=== PATIENT | male | born 1945 | race Asian ===

== ENCOUNTER 2019-04-24 11:11 | Day surgery (SDC) | payer OTHER ==
[2019-04-24 11:50] VITALS: BMI 29.5
[2019-04-24 13:30] VITALS: TEMP 97.5
[2019-04-24 14:19] VITALS: BP 127/77; PULSE 69
--- NOTE | 2019-04-25 19:13 | PATH ---
Surgical Pathology Report Patient Name: [facility]. Rec. #: [id number] /Age/Gender: 1945 (Age: 73) / M Account: [id number] Location: [facility]SU-ENDOSCOPY Taken: 04/24/2019 Received: 04/24/2019 Reported: 04/25/2019 Physicians: Joseph Morton D.O. Specimen(s) Received A: POLYP DESCENDING B: POLYP SPLENIC FLEXURE C: POLYPS DISTAL TRANSVERSE D: POLYS DISTAL DESCENDING E: POLYP RECTUM Clinical History Polyp surveillance, fatty liver Final Diagnosis A. DESCENDING COLON, POLYP, BIOPSY: TUBULAR ADENOMA. B. COLON, SPLENIC FLEXURE, POLYP, BIOPSY: HYPERPLASTIC POLYP. C. DISTAL TRANSVERSE COLON, POLYP, BIOPSY: TUBULAR ADENOMA. D. DISTAL DESCENDING COLON, POLYP, BIOPSY: TUBULAR ADENOMA. E. RECTUM, POLYP, BIOPSY: TUBULAR ADENOMA. Electronically Signed Antonina Diaz M.D. Gross Description A. Received in formalin, labeled "polyp descending" is a harrell, irregular portion of soft tissue measuring 0.3 cm. in greatest dimension. The specimen is submitted in toto in one cassette. B. Received in formalin, labeled "polyp splenic flexure" are 2 harrell, irregular portions of soft tissue measuring 0.1 and 0.4 cm. in greatest dimension. The specimens are submitted in toto in one cassette. C. Received in formalin, labeled "polyp distal transverse" are 2 harrell, irregular portions of soft tissue measuring 0.3 cm. in greatest dimension. The specimens are submitted in toto in one cassette. D. Received in formalin, labeled "polyp distal descending" is a harrell, irregular portion of soft tissue measuring 0.2 cm. in greatest dimension. The specimen is submitted in toto in one cassette. E. Received in formalin, labeled "polyp rectum" is a harrell, irregular portion of soft tissue measuring 0.3 cm. in greatest dimension. The specimen is submitted in toto in one cassette. MLSZ/04/24/2019 sanml/04/24/2019
== END 2019-04-24 14:19 | disposition home or self-care (01) ==
LOC: JASU-ENDO 11:11
PROVIDERS: ATTEND Internal Medicine Gastroenterology
PROC: 0DBP8ZX Excision of Rectum, Via Natural or Artificial Opening Endoscopic, Diagnostic (ICD-10-PCS; 2019-04-24)
PROC: 0DBL8ZX Excision of Transverse Colon, Via Natural or Artificial Opening Endoscopic, Diagnostic (ICD-10-PCS; 2019-04-24)
PROC: 0DBM8ZX Excision of Descending Colon, Via Natural or Artificial Opening Endoscopic, Diagnostic (ICD-10-PCS; principal; 2019-04-24 12:00)
DX: Z12.11 Encounter for screening for malignant neoplasm of colon (principal); K57.30 Diverticulosis of large intestine without perforation or abscess without bleeding; K62.1 Rectal polyp; D12.4 Benign neoplasm of descending colon; D12.3 Benign neoplasm of transverse colon; K64.8 Other hemorrhoids; E11.9 Type 2 diabetes mellitus without complications; E66.9 Obesity, unspecified; K76.0 Fatty (change of) liver, not elsewhere classified
CPT/HCPCS: 88305-TC